=== PATIENT | female | born 1980 | race Caucasian/White ===

== ENCOUNTER 2016-08-13 21:34 | Emergency (ER) | payer OTHER ==
[2016-08-13 22:10] LABS: SPECIFIC GRAVITY 1.015 (1.001-1.030); URINE BILIRUBIN NEGATIVE (NEGATIVE); URINE BLOOD NEGATIVE (NEGATIVE); URINE GLUCOSE (UA) NEGATIVE (NEGATIVE); URINE LEUKOCYTE ESTERASE NEGATIVE (NEGATIVE); URINE NITRITE NEGATIVE (NEGATIVE); URINE PROTEIN NEGATIVE (NEGATIVE); URINE UROBILINOGEN NORMAL (0-1 mg/dl)
[2016-08-13 22:11] LABS: URINE APPEARANCE CLEAR; URINE COLOR YELLOW
[2016-08-13] MEDS ORDERED: SODIUM CHLORIDE 0.9% 1,000 ML ONE (22:21)
[2016-08-13] MEDS ORDERED: ONDANSETRON 4 MG/2ML 2 ML VIAL ONE (22:21)
[2016-08-13] MEDS ORDERED: PANTOPRAZOLE SODIUM 40 MG VIAL IV ONE (22:21)
[2016-08-13] MEDS ORDERED: DIPHENHYDRAMINE HCL 50 MG/1 ML VIAL ONE (22:21)
[2016-08-13 22:52] LABS: ABSOLUTE NEUTROPHIL COUNT 7.2 K/mm3 (1.8-7.7); BASO % 0.3 % (0.2-1.0); EOS # 0.3 (0.0-0.5); EOS % 2.3 % (0.9-2.9); HEMATOCRIT 36.2 % (37.0-47.0); HEMOGLOBIN 12.1 gm/l (12.0-16.0); IMM NEUT # 0.1 K/mm3 (0-0.2); IMM NEUT% 0.5 % (0-1); LYMPH % 32.4 % (15-45); MEAN CELL VOLUME 88.3 fl (81.0-99.0); MEAN CORPUSCULAR HEMOGLOBIN 29.5 pg (27.0-31.0); MEAN CORPUSCULAR HGB CONC 33.4 g/dl (33.0-37.0); MEAN PLATELET VOLUME 9.4 fl (7.4-10.4); MONO # 0.8 (0.0-0.8); MONO % 6.3 % (4-12); NEUT % 58.2 % (43-75); PLATELET COUNT 328 K/mm3 (130-400); RED CELL DISTRIBUTION WIDTH 12.9 % (11.5-14.5)
[2016-08-13 23:14] LABS: ALB/GLOB RATIO 1.3 (>1.0); ALBUMIN 3.8 gm/dL (3.5-5.7); CALCIUM 9.4 mg/dL (8.6-10.3)
[2016-08-13 23:25] LABS: HCG,QUALITATIVE URINE NEGATIVE
[2016-08-14] MEDS ORDERED: HYDROMORPHONE HCL 1 MG/ML SYRINGE ONE (00:59)
--- NOTE | 2016-08-14 07:17 | CT ---
Exam Type: ABD/PELVIS W/O CON Date and Time: 08/13/2016 10:21 PM Clinical information: Kidney pain, back pain, rash, stomach issues. Comparison: 12/31/2012. Procedure: Imaging device: [employer] Aquilion [address] scanner 1 mm axial images were obtained through the abdomen and pelvis. Stacked reconstructed 3, 4 and 5 mm images were photographed in the axial coronal and sagittal planes. No oral contrast was utilized for this examination. Exam: Without intravenous contrast. FINDINGS: Lung bases:The visualized lung bases appear to be appropriate with no mass, effusion or consolidation visualized. Liver: the liver is homogeneous with no discrete abnormality visualized. No definite findings of biliary dilatation are observed. Spleen: The spleen is homogeneous and does not appear to be enlarged. Gallbladder: Normal without enlargement or evidence of adjacent inflammatory changes. Pancreas: Normal without enlargement or evidence of adjacent inflammatory changes. Adrenal glands: Normal without enlargement or evidence of adjacent inflammatory changes. Abdominal aorta: The aorta is of normal caliber and appears to be without significant atherosclerotic disease. Kidneys: The kidneys appear to be symmetric in size with no perinephric inflammatory changes are identified. No current findings of hydronephrosis are seen. No evidence of an intrarenal or intraureteral calculus is observed. Bowel structures: The visualized bowel is of normal caliber without evidence of dilatation or obstruction. No free fluid or mesenteric inflammatory changes are identified. Appendix: The appendix is well-visualized and appears to be of normal caliber. No periappendiceal inflammatory changes or CT findings of appendicitis are currently observed. Bladder: The bladder is of normal contour. No wall thickening or significant distention is observed. Hernia: There is a small fat filled umbilical hernia. The central abdominal wall is noted to bulge anteriorly without and additional defect. This is particularly evident within the lower pelvis. Adenopathy: No significant enlarged adenopathy is visualized. Osseous structures: No discrete osseous abnormalities are identified. Pelvic structures: No discrete pelvic abnormalities are visualized in this examination. IMPRESSION: 1. No evidence of an intrarenal or intraureteral calculus. 2. A normal appearance of the appendix without CT evidence of appendicitis. 3. Bulging of the central anterior abdominal wall in the region of the pelvis with a fat filled umbilical hernia noted. The findings were called to the emergency room at 0031 hours, 08/13/2016, by [employer] radiology.
== END 2016-08-14 01:20 | disposition home or self-care (01) ==
LOC: ED 21:34
DX: R10.9 Unspecified abdominal pain (principal); I10 Essential (primary) hypertension; E11.9 Type 2 diabetes mellitus without complications; Z79.4 Long term (current) use of insulin; Z79.84 Long term (current) use of oral hypoglycemic drugs; Z87.442 Personal history of urinary calculi